=== PATIENT | male | born 1980 | race Caucasian/White ===

== ENCOUNTER 2017-04-03 09:22 | Emergency (ER) | payer OTHER ==
[~2017-04-03] VITALS: Ht 185.4 cm; Wt 107.0 kg
[~2017-04-03 09:22] MED LIST: METH40TA9 PO
[2017-04-03 09:29] VITALS: BP 125/77; PULSE 76; RESP 24; TEMP 98.5; O2SAT 97
[2017-04-03 09:32] VITALS: BP 125/77; PULSE 83; RESP 24; O2SAT 97
[2017-04-03] MEDS ORDERED: chlordiazePOXIDE 25 MG CAP PO STA (09:38)
[2017-04-03] MEDS ORDERED: METH40TA PO (09:39)
[2017-04-03] MEDS ORDERED: ONDANSETRON HCL 4 MG/2 ML VIAL IV PUSH ONE (09:45)
[2017-04-03] MEDS ORDERED: SODIUM CHLOR 0.9% 1000 ML INJ 1,000 ML IV ONE (09:45)
[2017-04-03] MEDS ORDERED: SODIUM CHLORIDE 0.9% FLUSH 10 ML FLUSH IVF PRN (09:45)
[2017-04-03 10:11] LABS: AUTOMATED NEUTROPHIL # 8.9 TH/MM3 (1.8-7.7); BASOPHIL % 0.1 % (0.0-2.0); HEMATOCRIT 43.8 % (39.0-51.0); HEMO FLAGS DIFF FINAL; LYMPH % 11.8 % (9.0-44.0); LYMPHOCYTE # 1.2 TH/MM3 (1.0-4.8); MEAN CELL VOLUME 86.3 FL (80.0-100.0); MEAN CORPUSCULAR HEMOGLOBIN 29.6 PG (27.0-34.0); MEAN CORPUSCULAR HGB CONC 34.3 % (32.0-36.0); MONO % 3.6 % (0.0-8.0); NEUT % 84.5 % (16.0-70.0); PLATELET COUNT 233 TH/MM3 (150-450); RED BLOOD COUNT 5.07 MIL/MM3 (4.50-5.90); RED CELL DISTRIBUTION WIDTH 13.8 % (11.6-17.2); WHITE BLOOD COUNT 10.6 TH/MM3 (4.0-11.0)
--- NOTE | 2017-04-03 10:12 | RADRPT ---
EXAM DATE/TIME: 04/03/2017 09:44 [place] COMPARISON: No previous studies available for comparison. INDICATIONS : Chest pains with pressure mid sternal. MEDICAL HISTORY : None. SURGICAL HISTORY : None. ENCOUNTER: Initial ACUITY: 3 days PAIN SCORE: 7/10 LOCATION: Bilateral chest FINDINGS: Portable AP view of the chest demonstrates a normal-sized cardiac silhouette. No effusion, consolidat ion, or pneumothorax is visualized. The bones and soft tissues demonstrate no acute abnormality. CONCLUSION: No acute cardiopulmonary abnormality is identified. Simba Rubio MD on April 03, 2017 at 10:10 Board Certified Radiologist. This report was verified electronically.
[2017-04-03 10:30] LABS: ALT (GPT) 43 U/L (12-78); ANION GAP 11 MEQ/L (5-15); AST (GOT) 24 U/L (15-37); BICARBONATE 25.4 MEQ/L (21.0-32.0); BLOOD UREA NITROGEN 12 MG/DL (7-18); CHLORIDE 102 MEQ/L (98-107); GLOMERULAR FILTRATION RATE 92 ML/MIN (>89); POTASSIUM 3.9 MEQ/L (3.5-5.1); SODIUM (NA) 138 MEQ/L (136-145)
[2017-04-03 10:31] LABS: APTT (PATIENT) 23.8 SEC (24.3-30.1); PROTHROMBIN TIME - PATIENT 10.9 SEC (9.8-11.6)
[2017-04-03 10:34] LABS: ALKALINE PHOSPHATASE 106 U/L (45-117); TOTAL BILIRUBIN ADULT 0.5 MG/DL (0.2-1.0)
[2017-04-03 10:41] LABS: CREATINE KINASE 100 U/L (39-308)
[2017-04-03 11:26] VITALS: BP 122/76; PULSE 67; RESP 18; O2SAT 96
--- NOTE | 2017-04-03 11:49 | PD ---
HPI Chief Complaint: Cardiac Complaint Time Seen by Provider: 09:37 Travel History International Travel<30 days: No Contact w/Intl Traveler<30days: No Traveled to known affect area: No History of Present Illness HPI Patient is a 37 year old male who comes in complaining of chest pain, palpitations and nausea. He has history of drug abuse and has been taking Methadone and Xanax. He says he has not had Methadone or Xanax in three days. He says he would like to quit. He denies fever or chills. He denies any IV drug use. He says he has had withdrawal in the past and this feels similar. PFSH Past Medical History Anxiety: Yes Diminished Hearing: No Influenza Vaccination: No Past Surgical History Surgical History: No Previous Surgery Social History Alcohol Use: No Tobacco Use: Yes Substance Use: No (FORMERLY HEROIN) Allergies-Medications (Allergen,Severity, Reaction): Coded Allergies: No Known Allergies (Verified Adverse Reaction, Unknown, 04/03/17) Reported Meds & Prescriptions Reported Meds & Active Scripts Active Reported Methadone (Methadone HCl) 40 Mg Tab 190 Mg PO DAILY Review of Systems Except as stated in HPI: all other systems reviewed are Neg General / Constitutional: No: Fever, Chills Eyes: No: Blurred Vision HENT: No: Headaches, Lightheadedness Cardiovascular: Positive: Chest Pain or Discomfort, Palpitations Respiratory: No: Cough, Shortness of Breath Gastrointestinal: Positive: Nausea, No: Vomiting, Abdominal Pain Genitourinary: No: Dysuria Musculoskeletal: No: Myalgias, Weakness Skin: No Rash, No Change in Pigmentation Neurologic: No: Weakness, Dizziness Physical Exam Narrative GENERAL: Awake and alert, no acute distress. SKIN: Focused skin assessment warm/dry. HEAD: Atraumatic. Normocephalic. EYES: Pupils equal and round. No scleral icterus. ENT: Mucous membranes pink and moist. NECK: Trachea midline. No JVD. CARDIOVASCULAR: Regular rate and rhythm. No murmur appreciated. RESPIRATORY: No accessory muscle use. Clear to auscultation. Breath sounds equal bilaterally. GASTROINTESTINAL: Abdomen soft, non-tender, nondistended. MUSCULOSKELETAL: No obvious deformities. No clubbing. No cyanosis. No edema. NEUROLOGICAL: Awake and alert. No obvious cranial nerve deficits. Motor grossly within normal limits. Normal speech. PSYCHIATRIC: Appropriate mood and affect; insight and judgment normal. Data Data Last Documented VS Vital Signs Date Time Temp Pulse Resp B/P (MAP) Pulse Ox O2 Delivery O2 Flow Rate FiO2 04/03/17 11:26 67 18 122/76 (91) 96 Room Air 04/03/17 09:29 98.5 Orders Orders Electrocardiogram (04/03/17 09:38) Ckmb (Isoenzyme) Profile (04/03/17 09:38) Complete Blood Count With Diff (04/03/17 09:38) Comprehensive Metabolic Panel (04/03/17 09:38) D-Dimer (04/03/17 09:38) Prothrombin Time / Inr (Pt) (04/03/17 09:38) Act Partial Throm Time (Ptt) (04/03/17 09:38) Troponin I (04/03/17 09:38) Chest, Single Ap (04/03/17 09:38) Ecg Monitoring (04/03/17 09:38) Bilateral Bp Monitoring (04/03/17 09:38) Iv Access Insert/Monitor (04/03/17 09:38) Oximetry (04/03/17 09:38) Oxygen Administration (04/03/17 09:38) Sodium Chloride 0.9% Flush (Ns Flush) (04/03/17 09:45) Chlordiazepoxide (Librium) (04/03/17 09:38) Ondansetron Inj (Zofran Inj) (04/03/17 09:45) Sodium Chlor 0.9% 1000 Ml Inj (Ns 1000 M (04/03/17 09:45) Psych Screen (04/03/17 11:29) Labs Laboratory Tests Test 04/03/17 09:48 White Blood Count 10.6 TH/MM3 Red Blood Count 5.07 MIL/MM3 Hemoglobin 15.0 GM/DL Hematocrit 43.8 % Mean Corpuscular Volume 86.3 FL Mean Corpuscular Hemoglobin 29.6 PG Mean Corpuscular Hemoglobin Concent 34.3 % Red Cell Distribution Width 13.8 % Platelet Count 233 TH/MM3 Mean Platelet Volume 7.3 FL Neutrophils (%) (Auto) 84.5 % Lymphocytes (%) (Auto) 11.8 % Monocytes (%) (Auto) 3.6 % Eosinophils (%) (Auto) 0.0 % Basophils (%) (Auto) 0.1 % Neutrophils # (Auto) 8.9 TH/MM3 Lymphocytes # (Auto) 1.2 TH/MM3 Monocytes # (Auto) 0.4 TH/MM3 Eosinophils # (Auto) 0.0 TH/MM3 Basophils # (Auto) 0.0 TH/MM3 CBC Comment DIFF FINAL Differential Comment Prothrombin Time 10.9 SEC Prothromb Time International Ratio 1.0 RATIO Activated Partial Thromboplast Time 23.8 SEC D-Dimer Quantitative (PE/DVT) LESS THAN 0.19 MG/L FEU Blood Urea Nitrogen 12 MG/DL Creatinine 0.93 MG/DL Random Glucose 126 MG/DL Total Protein 8.3 GM/DL Albumin 3.9 GM/DL Calcium Level 9.6 MG/DL Alkaline Phosphatase 106 U/L Aspartate Amino Transf (AST/SGOT) 24 U/L Alanine Aminotransferase (ALT/SGPT) 43 U/L Total Bilirubin 0.5 MG/DL Sodium Level 138 MEQ/L Potassium Level 3.9 MEQ/L Chloride Level 102 MEQ/L Carbon Dioxide Level 25.4 MEQ/L Anion Gap 11 MEQ/L Estimat Glomerular Filtration Rate 92 ML/MIN Total Creatine Kinase 100 U/L Troponin I LESS THAN 0.02 NG/ML MDM Medical Decision Making Medical Screen Exam Complete: Yes Emergency Medical Condition: Yes Medical Record Reviewed: Yes Interpretation(s) ECG shows NSR at 69, no ST elevation or depression Differential Diagnosis withdrawal vs electrolyte abnormalities vs dehydration vs ACS (unlikely) Narrative Course patient is a 37-year-old male who comes in complaining of chest pain and palpitations with some nausea. He chronically uses methadone and Xanax, but says he hasn't had any 3 days. Exam shows no acute abnormalities. IV established, labs sent. Labs show no acute abnormalities. Troponin and d- dimer are negative. While I was speaking with the patient, he says that he is worried that if he leaves the hospital he we'll start using again. He would like to speak with psychiatry. Patient denies any suicidal or homicidal ideation. Psych screen ordered. Patient medically cleared. Diagnosis Primary Impression: Opiate withdrawal Condition: Stable Christy Mariee MD Apr 03, 2017 11:49
[2017-04-03 13:23] VITALS: BP 140/92; PULSE 65; RESP 18; TEMP 97.9; O2SAT 99
[2017-04-03] MEDS ORDERED: ACETAMINOPHEN 325 MG TAB PO ONE (14:45)
--- NOTE | 2017-04-03 15:31 | EKG ---
Date Performed: 04/03/2017 Time Performed: 09:32:17 PTAGE: 37 years EKG: Sinus rhythm MODERATE VOLTAGE CRITERIA FOR LVH, CONSIDER NORMAL VARIANT BORDERLINE ECG Compared to prior tracing no significant change PREVIOUS TRACING : 12/03/2014 19.01 DOCTOR: Anish Walters Interpretating Date/Time 04/03/2017 15:30:09
[2017-04-03 16:29] VITALS: BP 140/92; PULSE 65; RESP 18; O2SAT 99
--- NOTE | 2017-04-03 16:36 | PD ---
Physical Exam Date Seen by Provider: Apr 03, 2017 Time Seen by Provider: 16:32 Data Data Last Documented VS Vital Signs Date Time Temp Pulse Resp B/P (MAP) Pulse Ox O2 Delivery O2 Flow Rate FiO2 04/03/17 16:29 65 18 140/92 (108) 99 Room Air 04/03/17 13:23 97.9 Orders Orders Electrocardiogram (04/03/17 09:38) Ckmb (Isoenzyme) Profile (04/03/17 09:38) Complete Blood Count With Diff (04/03/17 09:38) Comprehensive Metabolic Panel (04/03/17 09:38) D-Dimer (04/03/17 09:38) Prothrombin Time / Inr (Pt) (04/03/17 09:38) Act Partial Throm Time (Ptt) (04/03/17 09:38) Troponin I (04/03/17 09:38) Chest, Single Ap (04/03/17 09:38) Ecg Monitoring (04/03/17 09:38) Bilateral Bp Monitoring (04/03/17 09:38) Iv Access Insert/Monitor (04/03/17 09:38) Oximetry (04/03/17 09:38) Oxygen Administration (04/03/17 09:38) Sodium Chloride 0.9% Flush (Ns Flush) (04/03/17 09:45) Chlordiazepoxide (Librium) (04/03/17 09:38) Ondansetron Inj (Zofran Inj) (04/03/17 09:45) Sodium Chlor 0.9% 1000 Ml Inj (Ns 1000 M (04/03/17 09:45) Psych Screen (04/03/17 11:29) Drug Screen, Random Urine (04/03/17 14:17) Alcohol (Ethanol) (04/03/17 14:17) Acetaminophen (Tylenol) (04/03/17 14:45) Diet Regular Basic (04/03/17 Dinner) Ed Discharge Order (04/03/17 16:32) Labs Laboratory Tests Test 04/03/17 09:48 04/03/17 15:07 White Blood Count 10.6 TH/MM3 Red Blood Count 5.07 MIL/MM3 Hemoglobin 15.0 GM/DL Hematocrit 43.8 % Mean Corpuscular Volume 86.3 FL Mean Corpuscular Hemoglobin 29.6 PG Mean Corpuscular Hemoglobin Concent 34.3 % Red Cell Distribution Width 13.8 % Platelet Count 233 TH/MM3 Mean Platelet Volume 7.3 FL Neutrophils (%) (Auto) 84.5 % Lymphocytes (%) (Auto) 11.8 % Monocytes (%) (Auto) 3.6 % Eosinophils (%) (Auto) 0.0 % Basophils (%) (Auto) 0.1 % Neutrophils # (Auto) 8.9 TH/MM3 Lymphocytes # (Auto) 1.2 TH/MM3 Monocytes # (Auto) 0.4 TH/MM3 Eosinophils # (Auto) 0.0 TH/MM3 Basophils # (Auto) 0.0 TH/MM3 CBC Comment DIFF FINAL Differential Comment Prothrombin Time 10.9 SEC Prothromb Time International Ratio 1.0 RATIO Activated Partial Thromboplast Time 23.8 SEC D-Dimer Quantitative (PE/DVT) LESS THAN 0.19 MG/L FEU Blood Urea Nitrogen 12 MG/DL Creatinine 0.93 MG/DL Random Glucose 126 MG/DL Total Protein 8.3 GM/DL Albumin 3.9 GM/DL Calcium Level 9.6 MG/DL Alkaline Phosphatase 106 U/L Aspartate Amino Transf (AST/SGOT) 24 U/L Alanine Aminotransferase (ALT/SGPT) 43 U/L Total Bilirubin 0.5 MG/DL Sodium Level 138 MEQ/L Potassium Level 3.9 MEQ/L Chloride Level 102 MEQ/L Carbon Dioxide Level 25.4 MEQ/L Anion Gap 11 MEQ/L Estimat Glomerular Filtration Rate 92 ML/MIN Total Creatine Kinase 100 U/L Troponin I LESS THAN 0.02 NG/ML Ethyl Alcohol Level LESS THAN 3 MG/DL Urine Opiates Screen NEG Urine Barbiturates Screen NEG Urine Amphetamines Screen NEG Urine Benzodiazepines Screen POS Urine Cocaine Screen POS Urine Cannabinoids Screen POS MDM Medical Record Reviewed: Yes Supervised Visit with ERIC: No Narrative Course 37-year-old male presents to the emergency room earlier requesting detox from methadone and Xanax. He has not taken medications in 3 days. He was seen and medically cleared for psychiatric evaluation. Patient denies suicidal or homicidal ideation. Psychiatric nurse saw patient and has facilitated transportation to nearest detox facility. Patient is calm, cooperative, competent, and stable for discharge and would like to go to [facility]. He was given several bus passes. Diagnosis Primary Impression: Opiate withdrawal Referrals: [facility] (Out patient) Disposition: 65 DISC TO PSYCH CARE FACILITY Condition: Stable Samantha Soria Apr 03, 2017 16:36
== END 2017-04-03 17:29 ==
LOC: NEPC 09:22 → NEPJ 17:29
DX: F11.23 Opioid dependence with withdrawal (principal); R00.2 Palpitations; R11.0 Nausea; R07.9 Chest pain, unspecified; F41.9 Anxiety disorder, unspecified; Z79.899 Other long term (current) drug therapy; Z72.0 Tobacco use
CPT/HCPCS: 71010; 80053; 80307; 82550; 84484; 85025; 85379; 85610; 85730; 93005; 96361; 96374; 99284; J2405; J7030